=== PATIENT | male | born 1930 | race Caucasian/White ===

== ENCOUNTER 2016-05-05 11:47 | Outpatient (CLI) | payer MEDICARE, OTHER | END 2016-05-05 11:48 | disposition home or self-care (01) | DX: Z85.46 Personal history of malignant neoplasm of prostate (principal) ==

== ENCOUNTER 2016-06-10 10:26 | Outpatient (CLI) | payer MEDICARE, OTHER | END 2016-06-10 10:27 | disposition home or self-care (01) | DX: M25.551 Pain in right hip (principal); M47.817 Spondylosis without myelopathy or radiculopathy, lumbosacral region ==

== ENCOUNTER 2016-07-01 10:13 | Outpatient (CLI) | payer MEDICARE, OTHER | END 2016-07-01 10:14 | disposition home or self-care (01) | DX: M51.36 Other intervertebral disc degeneration, lumbar region (principal); M47.896 Other spondylosis, lumbar region; M51.26 Other intervertebral disc displacement, lumbar region; M43.16 Spondylolisthesis, lumbar region; M51.37 Other intervertebral disc degeneration, lumbosacral region; M47.897 Other spondylosis, lumbosacral region ==

== ENCOUNTER 2016-08-19 19:34 | Outpatient (CLI) | payer MEDICARE, OTHER | END 2016-08-19 19:35 | disposition short-term general hospital (02) | LOC: EMS 19:34 | PROVIDERS: ATTEND Surgery | DX: R07.89 Other chest pain (principal) | CPT/HCPCS: A0425; A0427 ==

== ENCOUNTER 2017-04-04 09:43 | Emergency (ER) | payer MEDICARE, OTHER ==
[2017-04-04 09:50] VITALS: BP 143/73
[2017-04-04] MEDS ORDERED: DEXAMETHASONE 10 MG/ML VIAL PO STA (10:59)
--- NOTE | 2017-04-04 11:02 | ED Physician Documentation ---
PD HPI URI - Stated complaint Stated Complaint: COUGH/THROAT PX - Chief complaint Chief Complaint: Heent - History obtained from History obtained from: Patient, Family - History of Present Illness Timing - onset: Yesterday Timing duration: Days (2) Timing details: Gradual onset, Still present Associated symptoms: Nasal congestion, Rhinorrhea, Sore throat, Dry cough Contributing factors: Sick contact (daughter sick with UTI) Improves by: Rest Similar symptoms before: Has not had sx before Recently seen: Not recently seen - Additional information Additional information: 86-year-old male with a history of hypertension and congestive heart failure has developed a cough and congestion with a sore throat over the past 2 days. He has enough pain that is hard to swallow food. He has some drainage down the back of his throat and he had some nausea yesterday. Review of Systems Constitutional: denies: Fever Eyes: denies: Decreased vision Ears: denies: Ear pain Nose: reports: Rhinorrhea / runny nose, Congestion Throat: reports: Sore throat Cardiac: denies: Chest pain / pressure, Palpitations Respiratory: reports: Cough. denies: Dyspnea GI: reports: Nausea. denies: Vomiting : denies: Dysuria, Frequency PD PAST MEDICAL HISTORY - Past Medical History Past Medical History: Yes Cardiovascular: Congestive heart failure, Hypertension Respiratory: Sleep apnea Endocrine/Autoimmune: None GI: GERD : Other HEENT: Chronic vision loss Psych: None Musculoskeletal: Osteoarthritis, Fibromyalgia, Other Derm: None - Past Surgical History Past Surgical History: Yes General: Colonoscopy Ortho: Shoulder arthroplasty Cardiovascular: Other HEENT: Cataracts - Present Medications Home Medications: Ambulatory Orders Medication Instructions Recorded Confirmed Aspirin [Aspir 81] 81 mg PO DAILY 08/17/12 04/04/17 Omeprazole 20 mg PO BID 08/17/12 04/04/17 Tamsulosin [Flomax] 0.4 mg PO DAILY 08/17/12 04/04/17 Losartan [Cozaar] 25 mg PO DAILY 01/10/14 04/04/17 oxyCODONE ER [OxyCONTIN] 10 mg PO BID 01/10/14 04/04/17 oxyCODONE [Roxicodone] 5 mg PO Q4HR PRN 01/10/14 04/04/17 Guaifenesin/Dextromethorphan 1 tab ORAL DAILY 08/22/14 04/04/17 [Mucinex Dm ER 1,200-60 mg Tab] Amox/Clav 875/125 [Augmentin] 1 each PO Q12H #20 tablet 04/04/17 - Allergies Allergies/Adverse Reactions: Allergies Allergy/AdvReac Type Severity Reaction Status Date / Time No Known Drug Allergies Allergy Unverified 04/04/17 09:50 - Social History Does the pt smoke?: No Smoking Status: Never smoker Does the pt drink ETOH?: Yes Does the pt have substance abuse?: No - Immunizations Immunizations are current?: Yes - POLST Patient has POLST: No PD ED PE NORMAL - Vitals Vital signs reviewed: Yes (Hypertensive mild) - General General: Alert and oriented X 3, No acute distress, Well developed/nourished - HEENT HEENT: Atraumatic, PERRL, EOMI, Other (The left TM is inflamed with indistinct landmarks the right TM is not visible secondary to cerumen the pharynx is with dry mucous membranes and mild inflammation) - Neck Neck: Supple, no meningeal sign, No bony TTP - Cardiac Cardiac: RRR, No murmur - Respiratory Respiratory: No respiratory distress, Other (Scattered wheezes throughout with diminished breath sounds) - Abdomen Abdomen: Soft, Non tender - Back Back: No CVA TTP, No spinal TTP - Derm Derm: Normal color, Warm and dry, No rash - Extremities Extremities: No deformity, No edema - Neuro Neuro: No motor deficit, No sensory deficit Eye Opening: Spontaneous Motor: Obeys Commands Verbal: Oriented GCS Score: 15 - Psych Psych: Normal mood, Other (Affect is flat) Results - Vitals Vitals: Vital Signs - 24 hr 04/04/17 09:47 Temperature 37.0 C Heart Rate 73 Respiratory 16 Rate Blood Pressure 143/73 H O2 Saturation 94 Oxygen O2 Source Room air - Labs Labs: Laboratory Tests 04/04/17 11:00 Group A Strep Rapid Negative PD MEDICAL DECISION MAKING - ED course Complexity details: reviewed old records, reviewed results, re-evaluated patient , considered differential, d/w patient, d/w family ED course: 86-year-old male with a cough congestion and sore throat as OM on examination. He is administered dexamethasone 10 mg a rapid strep is negative and he is placed on Augmentin. Departure - Departure Disposition: 01 Home, Self Care Clinical Impression: Otitis media Qualifiers: Otitis media type: suppurative Chronicity: acute Laterality: left Recurrence: not specified as recurrent Spontaneous tympanic membrane rupture: without spontaneous rupture Qualified Code(s): H66.002 - Acute suppurative otitis media without spontaneous rupture of ear drum, left ear Condition: Stable Instructions: ED Otitis Media Acute Adult Follow-Up: Luzma Hartley MD [Primary Care Provider] - Prescriptions: Amox/Clav 875/125 [Augmentin] 1 each PO Q12H #20 tablet
== END 2017-04-04 11:42 | disposition home or self-care (01) ==
LOC: ED 09:43
DX: H66.002 Acute suppurative otitis media without spontaneous rupture of ear drum, left ear (principal); I11.0 Hypertensive heart disease with heart failure; I50.9 Heart failure, unspecified; K21.9 Gastro-esophageal reflux disease without esophagitis; M79.7 Fibromyalgia; M19.90 Unspecified osteoarthritis, unspecified site; Z79.82 Long term (current) use of aspirin
CPT/HCPCS: 87070; 87430; 99283

== ENCOUNTER 2017-05-13 09:40 | Outpatient (CLI) | payer MEDICARE, OTHER | END 2017-05-13 09:41 | disposition home or self-care (01) | LOC: LAB 09:40 | PROVIDERS: ATTEND Urology | DX: Z85.46 Personal history of malignant neoplasm of prostate (principal) | CPT/HCPCS: 36415; 84153 ==

== ENCOUNTER 2018-06-20 07:46 | Emergency (ER) | payer MEDICARE, OTHER ==
--- NOTE | 2018-06-20 08:34 | ED Physician Documentation ---
PD HPI ALTERED MENTAL STATUS - Stated complaint Stated Complaint: CONFUSION - Chief complaint Chief Complaint: Neuro - History obtained from History obtained from: Patient - History of Present Illness Timing - onset: Today Timing - details: Abrupt onset ( and daughter noted him to seem confused and off balance some this morning. He had fallen yesterday, mechanical fall while doing some bending and lifting, and fell to left, hitting shoulder and arm but also struck head on wall. No LOC and seemed okay at the time. This morning with the above symptoms. Denied headache. No focal weaknesses.) Quality / character: Confused, Disoriented Associated symptoms: No: Fever, Headache, NVD Contributing factors: Recent injury. No: Anticoagulated, Recent med change, Recent illness Basline status: Alert and oriented X 3, Ambulatory Similar symptoms before: Has not had sx before Recently seen: Not recently seen Review of Systems Constitutional: denies: Fever Nose: denies: Rhinorrhea / runny nose, Congestion Throat: denies: Sore throat Respiratory: denies: Cough GI: denies: Nausea, Vomiting Neurologic: reports: Confused (this morning, improving), Head injury (mild yesterday). denies: Generalized weakness, Focal weakness, Numbness, Difficulty speaking, Headache, LOC PD PAST MEDICAL HISTORY - Past Medical History Cardiovascular: Congestive heart failure, Hypertension Respiratory: Sleep apnea Neuro: None Endocrine/Autoimmune: None GI: GERD : Other HEENT: Chronic vision loss Psych: None Musculoskeletal: Osteoarthritis, Fibromyalgia, Other Derm: None Other Past Medical History: AICD placement - Past Surgical History Past Surgical History: Yes General: Colonoscopy Ortho: Shoulder arthroplasty Cardiovascular: Other HEENT: Cataracts - Present Medications Home Medications: Ambulatory Orders Medication Instructions Recorded Confirmed Aspirin [Aspir 81] 81 mg PO DAILY 08/17/12 04/04/17 Omeprazole 20 mg PO BID 08/17/12 04/04/17 Tamsulosin [Flomax] 0.4 mg PO DAILY 08/17/12 04/04/17 Losartan [Cozaar] 25 mg PO DAILY 01/10/14 04/04/17 oxyCODONE ER [OxyCONTIN] 10 mg PO BID 01/10/14 04/04/17 oxyCODONE [Roxicodone] 5 mg PO Q4HR PRN 01/10/14 04/04/17 Guaifenesin/Dextromethorphan 1 tab ORAL DAILY 08/22/14 04/04/17 [Mucinex Dm ER 1,200-60 mg Tab] Amox/Clav 875/125 [Augmentin] 1 each PO Q12H #20 tablet 04/04/17 - Allergies Allergies/Adverse Reactions: Allergies Allergy/AdvReac Type Severity Reaction Status Date / Time No Known Drug Allergies Allergy Verified 06/20/18 08:03 - Social History Does the pt smoke?: No Smoking Status: Never smoker Does the pt drink ETOH?: Yes Does the pt have substance abuse?: No - Immunizations Immunizations are current?: Yes - POLST Patient has POLST: No PD ED PE NORMAL - Vitals Vital signs reviewed: Yes - General General: Alert and oriented X 3, No acute distress, Well developed/nourished - HEENT HEENT: Moist mucous membranes, Pharynx benign, Other (minimal tenderness left side head without swelling. ) - Neck Neck: Supple, no meningeal sign, No bony TTP, No adenopathy - Cardiac Cardiac: RRR, No murmur - Respiratory Respiratory: Clear bilaterally - Abdomen Abdomen: Soft, Non tender - Derm Derm: Normal color, Warm and dry - Neuro Neuro: Alert and oriented X 3, education supervisor 2-12 intact, No motor deficit, No sensory deficit, Normal speech Eye Opening: Spontaneous Motor: Obeys Commands Verbal: Oriented GCS Score: 15 Results - Vitals Vitals: Vital Signs - 24 hr 06/20/18 06/20/18 07:59 09:32 Temperature 36.6 C Heart Rate 81 57 L Respiratory 16 14 Rate Blood Pressure 141/72 H 148/79 H O2 Saturation 95 92 Oxygen O2 Source Room air - Labs Labs: Laboratory Tests 06/20/18 06/20/18 06/20/18 07:59 08:24 08:45 WBC 9.2 RBC 3.71 L Hgb 13.2 L Hct 39.6 L MCV 106.6 H MCH 35.6 H MCHC 33.4 RDW 12.7 Plt Count 150 MPV 7.1 L Neut # (Auto) 6.9 H Lymph # (Auto) 1.5 [place] # (Auto) 0.6 Eos # (Auto) 0.2 Baso # (Auto) 0.0 Absolute Nucleated RBC 0.00 Nucleated RBC % 0.0 Sodium Potassium Chloride Carbon Dioxide Anion Gap BUN Creatinine Estimated GFR (MDRD) Glucose POC Whole Bld Glucose 91 Calcium Magnesium Total Bilirubin AST ALT Alkaline Phosphatase Troponin I Total Protein Albumin Globulin Albumin/Globulin Ratio Lipase Urine Color YELLOW Urine Clarity CLEAR Urine pH 6.0 Ur Specific [place] 1.025 Urine Protein NEGATIVE Urine Glucose (UA) NEGATIVE Urine Ketones NEGATIVE Urine Occult Blood NEGATIVE Urine Nitrite NEGATIVE Urine Bilirubin NEGATIVE Urine Urobilinogen 0.2 (NORMAL) Ur Leukocyte Esterase NEGATIVE Ur Microscopic Review NOT INDICATED Urine Culture Comments NOT INDICATED 06/20/18 06/20/18 06/20/18 08:45 08:45 08:45 WBC RBC Hgb Hct MCV MCH MCHC RDW Plt Count MPV Neut # (Auto) Lymph # (Auto) [place] # (Auto) Eos # (Auto) Baso # (Auto) Absolute Nucleated RBC Nucleated RBC % Sodium 136 Potassium 4.5 Chloride 102 Carbon Dioxide 24 Anion Gap 10.0 BUN 32 H Creatinine 0.9 Estimated GFR (MDRD) 80 L Glucose 91 POC Whole Bld Glucose Calcium 8.8 Magnesium 2.1 Total Bilirubin 1.3 H AST 32 ALT 17 Alkaline Phosphatase 65 Troponin I < 0.04 Total Protein 7.6 Albumin 3.7 Globulin 3.9 Albumin/Globulin Ratio 0.9 L Lipase 20 L Urine Color Urine Clarity Urine pH Ur Specific [place] Urine Protein Urine Glucose (UA) Urine Ketones Urine Occult Blood Urine Nitrite Urine Bilirubin Urine Urobilinogen Ur Leukocyte Esterase Ur Microscopic Review Urine Culture Comments - Rads (name of study) head CT Radiology: Prelim report reviewed (age related changes; no acute injury) PD MEDICAL DECISION MAKING - ED course Complexity details: reviewed results, considered differential, d/w patient Departure - Departure Disposition: 01 Home, Self Care Clinical Impression: Accidental fall Qualifiers: Encounter type: initial encounter Qualified Code(s): W19.XXXA - Unspecified fall, initial encounter Altered mental status Qualifiers: Altered mental status type: disorientation Qualified Code(s): R41.0 - Disorientation, unspecified Mild concussion Qualifiers: Encounter type: initial encounter Loss of consciousness presence/duration: without LOC Qualified Code(s): S06.0X0A - Concussion without loss of consciousness, initial encounter Condition: Stable Record reviewed to determine appropriate education?: Yes Instructions: ED Concussion, ED Confusion Follow-Up: Luzma Hartley MD [Primary Care Provider] - Comments: Stay well-hydrated. Minimal activity today. Continue usual medicines. Recheck if persistent symptoms. Discharge Date/Time: 06/20/18 10:46
[2018-06-20 08:52] LABS: BASOPHILS % (AUTO) 0.3 %; EOSINOPHILS # (AUTO) 0.2 10^3/uL (0.0-0.7); EOSINOPHILS % (AUTO) 2.7 %; HGB - HEMOGLOBIN 13.2 g/dL (14.0-18.0); LYMPHOCYTES # (AUTO) 1.5 10^3/uL (1.5-3.5); MEAN CORPUSCULAR HEMOGLOBIN 35.6 pg (27.0-31.0); MEAN CORPUSCULAR HGB CONC 33.4 g/dL (32.0-36.0); MEAN CORPUSCULAR VOLUME 106.6 fL (80.0-94.0); MEAN PLATELET VOLUME 7.1 fL (7.4-11.4); MONOCYTES # (AUTO) 0.6 10^3/uL (0.0-1.0); MONOCYTES % (AUTO) 6.1 %; NEUTROPHILS # (AUTO) 6.9 10^3/uL (1.5-6.6); NEUTROPHILS % (AUTO) 74.9 %; PLT - PLATELET COUNT 150 10^3/uL (130-450); RED BLOOD COUNT 3.71 10^6/uL (4.70-6.10); RED CELL DISTRIBUTION WIDTH 12.7 % (12.0-15.0); WHITE BLOOD COUNT 9.2 x10^3/uL (4.8-10.8)
[2018-06-20 09:17] LABS: BILIRUBIN,URINE NEGATIVE (NEGATIVE); GLUCOSE, URINE (UA) NEGATIVE (NEGATIVE); KETONES,URINE (UA) NEGATIVE (NEGATIVE); LEUKOCYTE ESTERASE, URINE NEGATIVE (NEGATIVE); NITRITE,URINE NEGATIVE (NEGATIVE); OCCULT BLOOD,URINE NEGATIVE (NEGATIVE); PROTEIN,URINE NEGATIVE (NEGATIVE); UROBILINOGEN,URINE 0.2 (NORMAL) E.U./dL (NORMAL)
[2018-06-20 09:18] LABS: CLARITY,URINE CLEAR (CLEAR)
[2018-06-20 09:22] LABS: ALBUMIN 3.7 g/dL (3.2-5.5); ALBUMIN/GLOBULIN RATIO 0.9 (1.0-2.2); BILIRUBIN,TOTAL 1.3 mg/dL (0.2-1.0); CALCIUM 8.8 mg/dL (8.5-10.3); CREATININE 0.9 mg/dL (0.6-1.2); TOTAL PROTEIN 7.6 g/dL (6.7-8.2)
[2018-06-20 09:32] VITALS: BP 148/79
--- NOTE | 2018-06-20 09:51 | CT Report ---
Reason: head injury yesterday, confused today Procedure Date: 06/20/2018 Accession Number: [id number] / [id number] Procedure: CT - HEAD WO CPT Code: FULL RESULT: EXAM: CT HEAD EXAM DATE: 06/20/2018 09:14 AM. CLINICAL HISTORY: Head injury yesterday, confused today. COMPARISON: CT head 07/07/2013. TECHNIQUE: Multiaxial CT images were obtained from the foramen magnum to the vertex. Reformats: Sagittal and coronal. IV contrast: None. In accordance with CT protocol optimization, one or more of the following dose reduction techniques were utilized for this exam: automated exposure control, adjustment of mA and/or KV based on patient size, or use of iterative reconstructive technique. FINDINGS: Parenchyma: No intraparenchymal hemorrhage. No evidence of mass, midline shift, or CT findings of infarction. Campbell-white differentiation is distinct. Extraaxial Spaces: Normal for age. No subdural or epidural collections identified. Ventricles: Normal in size and position. Sinuses and Orbits: Imaged paranasal sinuses, orbits, and mastoids show no significant abnormality. Bones: No evidence of fracture or calvarial defect. Other: None. IMPRESSION: Normal head CT. No evidence of fracture or intracranial injury. RADIA
== END 2018-06-20 10:46 | disposition home or self-care (01) ==
LOC: ED 07:46
DX: R41.0 Disorientation, unspecified (principal); S06.0X0A Concussion without loss of consciousness, initial encounter; W18.30XA Fall on same level, unspecified, initial encounter; W22.09XA Striking against other stationary object, initial encounter; I11.0 Hypertensive heart disease with heart failure; I50.9 Heart failure, unspecified; Z95.810 Presence of automatic (implantable) cardiac defibrillator; Z79.82 Long term (current) use of aspirin
CPT/HCPCS: 36415; 70450; 80053; 81001; 81003; 83690; 83735; 84484; 85025; 87086; 99283; 99284

== ENCOUNTER 2018-07-14 10:19 | Outpatient (CLI) | payer MEDICARE, OTHER | END 2018-07-14 10:20 | disposition home or self-care (01) | LOC: LAB 10:19 | PROVIDERS: ATTEND Urology | DX: C61 Malignant neoplasm of prostate (principal) | CPT/HCPCS: 36415; 84153 ==

== ENCOUNTER 2019-09-08 11:34 | Outpatient (CLI) | payer MEDICARE, OTHER | END 2019-09-08 11:35 | disposition home or self-care (01) | LOC: LAB 11:34 | PROVIDERS: ATTEND Urology | DX: Z85.46 Personal history of malignant neoplasm of prostate (principal) | CPT/HCPCS: 36415; 84153 ==

== ENCOUNTER 2020-06-18 08:27 | Outpatient (CLI) | payer MEDICARE, OTHER ==
[2020-06-18 08:48] LABS: BASOPHILS % (AUTO) 0.3 %; EOSINOPHILS # (AUTO) 0.7 10^3/uL (0.0-0.7); EOSINOPHILS % (AUTO) 12.1 %; HCT - HEMATOCRIT 41.5 % (42.0-52.0); LYMPHOCYTES # (AUTO) 1.8 10^3/uL (1.5-3.5); LYMPHOCYTES % (AUTO) 29.7 %; MEAN CORPUSCULAR HEMOGLOBIN 36.5 pg (27.0-31.0); MEAN CORPUSCULAR HGB CONC 33.7 g/dL (32.0-36.0); MEAN CORPUSCULAR VOLUME 108.1 fL (80.0-94.0); MEAN PLATELET VOLUME 9.9 fL (7.4-11.4); MONOCYTES # (AUTO) 0.6 10^3/uL (0.0-1.0); MONOCYTES % (AUTO) 9.2 %; NEUTROPHILS # (AUTO) 2.9 10^3/uL (1.5-6.6); NEUTROPHILS % (AUTO) 48.5 %; PLT - PLATELET COUNT 142 10^3/uL (130-450); RED BLOOD COUNT 3.84 10^6/uL (4.70-6.10); RED CELL DISTRIBUTION WIDTH 12.4 % (12.0-15.0)
[2020-06-18 09:06] LABS: ALBUMIN 3.9 g/dL (3.2-5.5); ALKALINE PHOSPHATASE 48 IU/L (42-121); ALT ALANINE AMINOTRANSFERASE 20 IU/L (10-60); AST ASPARTATE AMINOTRANSFERASE 24 IU/L (10-42); BILIRUBIN,TOTAL 1.2 mg/dL (0.2-1.0); BUN - BLOOD UREA NITROGEN 42 mg/dL (6-20); CALCIUM 9.3 mg/dL (8.5-10.3); CARBON DIOXIDE - CO2 26 mmol/L (21-32); CHLORIDE 103 mmol/L (101-111); CHOL/HDL RATIO 3.4 (<5.0); CHOLESTEROL 125 mg/dL; CK- CREATINE KINASE 160 IU/L (22-269); CREATININE 1.3 mg/dL (0.6-1.2); GFR - MDRD 52 (>89); GLUCOSE 105 mg/dL (70-100); HDL CHOLESTEROL 37 mg/dL; LDL CHOLESTEROL,CALCULATED 75 mg/dL; POTASSIUM 4.3 mmol/L (3.5-5.0); SODIUM 138 mmol/L (135-145); TOTAL PROTEIN 7.8 g/dL (6.7-8.2); TRIGLYCERIDES 66 mg/dL; VLDL CHOLESTEROL 13 mg/dL
[2020-06-18 09:15] LABS: BILIRUBIN,URINE NEGATIVE (NEGATIVE); GLUCOSE, URINE (UA) NEGATIVE (NEGATIVE); KETONES,URINE (UA) NEGATIVE (NEGATIVE); LEUKOCYTE ESTERASE, URINE NEGATIVE (NEGATIVE); NITRITE,URINE NEGATIVE (NEGATIVE); OCCULT BLOOD,URINE NEGATIVE (NEGATIVE); PH,URINE 5.5 PH (5.0-7.5); PROTEIN,URINE NEGATIVE (NEGATIVE); UROBILINOGEN,URINE 1 (NORMAL) E.U./dL (NORMAL)
[2020-06-18 09:16] LABS: CLARITY,URINE CLEAR (CLEAR)
[2020-06-18 09:19] LABS: THYROID STIMULATING HORMONE 1.16 uIU/mL (0.34-5.60)
[2020-06-18 09:21] LABS: FREE T4 (FREE THYROXINE) 1.45 ng/dL (0.58-1.64)
[2020-06-18 12:51] LABS: ESTIMATED AVERAGE GLUCOSE 114 mg/dL (70-100); HEMOGLOBIN A1c% 5.6 % (4.27-6.07)
== END 2020-06-18 08:28 | disposition home or self-care (01) ==
LOC: LAB 08:27
PROVIDERS: ATTEND Internal Medicine
DX: E78.5 Hyperlipidemia, unspecified (principal); R94.5 Abnormal results of liver function studies; N18.9 Chronic kidney disease, unspecified; Z86.2 Personal history of diseases of the blood and blood-forming organs and certain disorders involving the immune mechanism; R39.14 Feeling of incomplete bladder emptying; Z79.899 Other long term (current) drug therapy; E05.90 Thyrotoxicosis, unspecified without thyrotoxic crisis or storm; R73.9 Hyperglycemia, unspecified; C61 Malignant neoplasm of prostate
CPT/HCPCS: 36415; 80053; 80061; 81001; 81003; 82550; 83036; 83721; 84153; 84439; 84443; 85025; 87086

== ENCOUNTER 2020-09-26 14:29 | Outpatient (CLI) | payer MEDICARE, OTHER | END 2020-09-26 14:30 | disposition home or self-care (01) | LOC: LAB 14:29 | PROVIDERS: ATTEND Urology | DX: C61 Malignant neoplasm of prostate (principal) | CPT/HCPCS: 36415; 84153 ==

== ENCOUNTER 2021-07-10 08:00 | Outpatient (CLI) | payer MEDICARE, OTHER ==
[2021-07-10 16:04] LABS: BASOPHILS # (AUTO) 0.1 10^3/uL (0.0-0.1); BASOPHILS % (AUTO) 0.8 %; EOSINOPHILS # (AUTO) 0.3 10^3/uL (0.0-0.7); EOSINOPHILS % (AUTO) 5.7 %; HCT - HEMATOCRIT 44.3 % (42.0-52.0); HGB - HEMOGLOBIN 14.8 g/dL (14.0-18.0); LYMPHOCYTES # (AUTO) 1.8 10^3/uL (1.5-3.5); LYMPHOCYTES % (AUTO) 30.6 %; MEAN CORPUSCULAR HEMOGLOBIN 35.7 pg (27.0-31.0); MEAN CORPUSCULAR HGB CONC 33.4 g/dL (32.0-36.0); MEAN CORPUSCULAR VOLUME 106.7 fL (80.0-94.0); MEAN PLATELET VOLUME 10.5 fL (7.4-11.4); MONOCYTES # (AUTO) 0.4 10^3/uL (0.0-1.0); MONOCYTES % (AUTO) 6.3 %; NEUTROPHILS # (AUTO) 3.4 10^3/uL (1.5-6.6); NEUTROPHILS % (AUTO) 56.3 %; PLT - PLATELET COUNT 138 10^3/uL (130-450); RED BLOOD COUNT 4.15 10^6/uL (4.70-6.10); RED CELL DISTRIBUTION WIDTH 12.1 % (12.0-15.0)
[2021-07-10 16:44] LABS: PSA TOTAL 0.01 ng/mL (0.000-2.000)
[2021-07-10 16:48] LABS: ALBUMIN 3.9 g/dL (3.2-5.5); ALKALINE PHOSPHATASE 53 IU/L (42-121); ALT ALANINE AMINOTRANSFERASE 17 IU/L (10-60); AST ASPARTATE AMINOTRANSFERASE 25 IU/L (10-42); BILIRUBIN,TOTAL 1.1 mg/dL (0.2-1.0); BUN - BLOOD UREA NITROGEN 26 mg/dL (6-20); CALCIUM 9.2 mg/dL (8.5-10.3); CARBON DIOXIDE - CO2 28 mmol/L (21-32); CHLORIDE 101 mmol/L (101-111); CHOL/HDL RATIO 3.3 (<5.0); CHOLESTEROL 145 mg/dL; CK- CREATINE KINASE 52 IU/L (22-269); GFR - MDRD 71 (>89); GLUCOSE 94 mg/dL (70-100); HDL CHOLESTEROL 44 mg/dL; LDL CHOLESTEROL,CALCULATED 82 mg/dL; LDL/HDL RATIO 1.9 (<3.6); POTASSIUM 3.9 mmol/L (3.5-5.0); SODIUM 139 mmol/L (135-145); TOTAL PROTEIN 7.8 g/dL (6.7-8.2); TRIGLYCERIDES 94 mg/dL; VLDL CHOLESTEROL 19 mg/dL
[2021-07-10 16:50] LABS: THYROID STIMULATING HORMONE 0.49 uIU/mL (0.34-5.60)
[2021-07-10 16:52] LABS: FREE T4 (FREE THYROXINE) 1.32 ng/dL (0.58-1.64)
[2021-07-10 20:28] LABS: ESTIMATED AVERAGE GLUCOSE 114 mg/dL (70-100); HEMOGLOBIN A1c% 5.6 % (4.27-6.07)
== END 2021-07-10 08:01 | disposition home or self-care (01) ==
LOC: LAB.R 08:00
PROVIDERS: ATTEND Internal Medicine
DX: Z00.00 Encounter for general adult medical examination without abnormal findings (principal); I13.0 Hypertensive heart and chronic kidney disease with heart failure and stage 1 through stage 4 chronic kidney disease, or unspecified chronic kidney disease; N18.9 Chronic kidney disease, unspecified; I50.9 Heart failure, unspecified; I25.10 Atherosclerotic heart disease of native coronary artery without angina pectoris; R42 Dizziness and giddiness; K21.9 Gastro-esophageal reflux disease without esophagitis; R73.9 Hyperglycemia, unspecified; E78.5 Hyperlipidemia, unspecified; E05.90 Thyrotoxicosis, unspecified without thyrotoxic crisis or storm; H61.21 Impacted cerumen, right ear; C61 Malignant neoplasm of prostate; R56.9 Unspecified convulsions; G47.30 Sleep apnea, unspecified
CPT/HCPCS: 80053; 80061; 82550; 83036; 83721; 84153; 84439; 84443; 85025

== ENCOUNTER 2021-07-23 13:53 | Outpatient (CLI) | payer MEDICARE, OTHER | END 2021-07-23 23:59 | disposition short-term general hospital (02) | LOC: EMS 13:53 | DX: I95.1 Orthostatic hypotension (principal); R53.1 Weakness; R42 Dizziness and giddiness | CPT/HCPCS: A0425; A0427 ==

== ENCOUNTER 2022-04-10 11:27 | Outpatient (CLI) | payer MEDICARE, OTHER ==
[2022-04-10 11:43] LABS: BASOPHILS % (AUTO) 0.5 %; EOSINOPHILS # (AUTO) 0.2 10^3/uL (0.0-0.7); EOSINOPHILS % (AUTO) 2.9 %; HCT - HEMATOCRIT 38.5 % (42.0-52.0); HGB - HEMOGLOBIN 12.5 g/dL (14.0-18.0); LYMPHOCYTES # (AUTO) 1.6 10^3/uL (1.5-3.5); LYMPHOCYTES % (AUTO) 19.2 %; MEAN CORPUSCULAR HEMOGLOBIN 35.1 pg (27.0-31.0); MEAN CORPUSCULAR HGB CONC 32.5 g/dL (32.0-36.0); MEAN CORPUSCULAR VOLUME 108.1 fL (80.0-94.0); MEAN PLATELET VOLUME 9.3 fL (7.4-11.4); MONOCYTES # (AUTO) 0.5 10^3/uL (0.0-1.0); MONOCYTES % (AUTO) 5.6 %; NEUTROPHILS # (AUTO) 5.8 10^3/uL (1.5-6.6); NEUTROPHILS % (AUTO) 71.2 %; PLT - PLATELET COUNT 137 10^3/uL (130-450); RED BLOOD COUNT 3.56 10^6/uL (4.70-6.10); RED CELL DISTRIBUTION WIDTH 12.6 % (12.0-15.0); WHITE BLOOD COUNT 8.2 x10^3/uL (4.8-10.8)
[2022-04-10 12:02] LABS: ALBUMIN 3.5 g/dL (3.2-5.5); ALBUMIN/GLOBULIN RATIO 0.9 (1.0-2.2); BILIRUBIN,TOTAL 1.6 mg/dL (0.2-1.0); CALCIUM 9.1 mg/dL (8.5-10.3); CREATININE 1.1 mg/dL (0.6-1.2); POTASSIUM 3.8 mmol/L (3.5-5.0); TOTAL PROTEIN 7.5 g/dL (6.7-8.2)
--- NOTE | 2022-04-10 12:15 | CT Report ---
PROCEDURE: HEAD WO INDICATIONS: BALANCE IMPAIRNET TECHNIQUE: Noncontrast 4.5 mm thick angled axial sections acquired from the foramen magnum to the vertex. For r adiation dose reduction, the following was used: automated exposure control, adjustment of mA and/or kV according to patient size. COMPARISON: 06/20/2018. FINDINGS: Image quality: Excellent. CSF spaces: Basal cisterns are patent. No extra-axial fluid collections. Ventricles are normal in size and shape. Brain: No midline shift. No intracranial masses or hemorrhage. Campbell-white matter interface is norm al. Age-related volume loss and small vessel ischemic change. Diffuse calcifications of the vertebra l arteries and cavernous carotids. Skull and face: Calvarium and visualized facial bones are intact, without suspicious lesions. Sinuses: Visualized sinuses and mastoids are clear. IMPRESSION: 1. ASCVD. 2. No evidence acute intracranial process. Reviewed by: Dmitriy Arellano MD on 04/10/2022 12:14 PM PST Approved by: Dmitriy Arellano MD on 04/10/2022 12:14 PM PST Station ID: [id number]
== END 2022-04-10 11:28 | disposition home or self-care (01) ==
LOC: DI 11:27
PROVIDERS: ATTEND Internal Medicine
DX: I67.2 Cerebral atherosclerosis (principal); R26.89 Other abnormalities of gait and mobility; R09.02 Hypoxemia; R40.0 Somnolence; R53.1 Weakness; R06.00 Dyspnea, unspecified
CPT/HCPCS: 36415; 80053; 85025

== ENCOUNTER 2022-04-29 10:42 | Outpatient (CLI) | payer MEDICARE, OTHER | END 2022-04-29 10:43 | disposition short-term general hospital (02) | LOC: EMS 10:42 | DX: R07.9 Chest pain, unspecified (principal); R53.1 Weakness; R53.83 Other fatigue; R41.0 Disorientation, unspecified; I49.9 Cardiac arrhythmia, unspecified; Z95.810 Presence of automatic (implantable) cardiac defibrillator | CPT/HCPCS: A0425; A0427 ==

== ENCOUNTER 2022-05-28 05:47 | Outpatient (CLI) | payer MEDICARE, OTHER | END 2022-05-28 05:48 | disposition critical access hospital (66) | LOC: EMS 05:47 | DX: R06.02 Shortness of breath (principal); R07.9 Chest pain, unspecified; R05.3 Chronic cough | CPT/HCPCS: A0425; A0427 ==

== ENCOUNTER 2022-05-28 06:07 | Emergency (ER) | payer MEDICARE, OTHER ==
[~2022-05-28 06:07] MED LIST: ATROPINE ABBOJECT 1 MG/10 ML SYRINGE IVP ONE
[2022-05-28] MEDS ORDERED: AMIODARONE 150 MG/100 ML 100 ML IV ONE ×2 (06:22→06:38)
[2022-05-28] MEDS ORDERED: SODIUM CHLORIDE 0.9% 1,000 ML IV STA (06:37)
[2022-05-28] MEDS ORDERED: AMIODARONE 360 MG/200 ML 200 ML IV ONE ×2 (06:38→06:57)
[2022-05-28] MEDS ORDERED: MIDAZOLAM 2 MG/2 ML VIAL IVP STA ×2 (06:41→06:52)
[2022-05-28] MEDS ORDERED: MIDAZOLAM 2 MG/2 ML VIAL ONE (06:45)
[2022-05-28 07:44] LABS: BASOPHILS # (AUTO) 0.1 10^3/uL (0.0-0.1); BASOPHILS % (AUTO) 0.7 %; EOSINOPHILS # (AUTO) 0.4 10^3/uL (0.0-0.7); EOSINOPHILS % (AUTO) 4.7 %; HCT - HEMATOCRIT 39.3 % (42.0-52.0); HGB - HEMOGLOBIN 12.5 g/dL (14.0-18.0); LYMPHOCYTES # (AUTO) 1.5 10^3/uL (1.5-3.5); MEAN CORPUSCULAR HEMOGLOBIN 36.1 pg (27.0-31.0); MEAN CORPUSCULAR HGB CONC 31.8 g/dL (32.0-36.0); MEAN CORPUSCULAR VOLUME 113.6 fL (80.0-94.0); MEAN PLATELET VOLUME 9.3 fL (7.4-11.4); MONOCYTES # (AUTO) 0.6 10^3/uL (0.0-1.0); MONOCYTES % (AUTO) 6.3 %; NEUTROPHILS # (AUTO) 6.3 10^3/uL (1.5-6.6); NEUTROPHILS % (AUTO) 70.6 %; PLT - PLATELET COUNT 161 10^3/uL (130-450); RED BLOOD COUNT 3.46 10^6/uL (4.70-6.10); RED CELL DISTRIBUTION WIDTH 13.2 % (12.0-15.0); WHITE BLOOD COUNT 8.9 x10^3/uL (4.8-10.8)
--- NOTE | 2022-05-28 07:44 | ED Physician Documentation ---
PD HPI CHEST PAIN - Stated complaint Stated Complaint: SOA/CHEST PX - Chief complaint Chief Complaint: Cardiac - History obtained from History obtained from: Patient, EMS - Additional information Additional information: 89-year-old man presented to the ED in V. tach, complaining of chest pain for the past week, worsening tonight. Unable to give further history. Review of Systems Unable to obtain: Other (difficult historian) PD PAST MEDICAL HISTORY - Past Medical History Cardiovascular: Congestive heart failure, Hypertension Respiratory: Sleep apnea Neuro: None Endocrine/Autoimmune: None GI: GERD : Other HEENT: Chronic vision loss Psych: None Musculoskeletal: Osteoarthritis, Fibromyalgia, Other Derm: None - Past Surgical History Past Surgical History: Yes General: Colonoscopy Ortho: Shoulder arthroplasty Cardiovascular: Other HEENT: Cataracts - Present Medications Home Medications: Ambulatory Orders Medication Instructions Recorded Confirmed Aspirin [Aspir 81] 81 mg PO DAILY 08/17/12 04/04/17 Omeprazole 20 mg PO BID 08/17/12 04/04/17 Tamsulosin [Flomax] 0.4 mg PO DAILY 08/17/12 04/04/17 Losartan [Cozaar] 25 mg PO DAILY 01/10/14 04/04/17 oxyCODONE ER [OxyCONTIN] 10 mg PO BID 01/10/14 04/04/17 oxyCODONE [Roxicodone] 5 mg PO Q4HR PRN 01/10/14 04/04/17 Guaifenesin/Dextromethorphan 1 tab ORAL DAILY 08/22/14 04/04/17 [Mucinex Dm ER 1,200-60 mg Tab] Amox/Clav 875/125 [Augmentin] 1 each PO Q12H #20 tablet 04/04/17 - Allergies Allergies/Adverse Reactions: Allergies Allergy/AdvReac Type Severity Reaction Status Date / Time No Known Drug Allergies Allergy Verified 05/28/22 06:48 - Social History Does the pt smoke?: No Smoking Status: Never smoker Does the pt drink ETOH?: Yes Does the pt have substance abuse?: No - Immunizations Immunizations are current?: Yes - POLST Patient has POLST: No PD ED PE NORMAL - Vitals Vital signs reviewed: Yes - General General: Other (elderly and frail appearing) - HEENT HEENT: Atraumatic, PERRL, EOMI, Other (dry MM) - Neck Neck: Supple, no meningeal sign - Cardiac Cardiac: Other (tachycardic rate, regular rhythm. AICD/pacemaker in place in L upper chest wall) - Respiratory Respiratory: Other (coarse BL breath sounds) - Abdomen Abdomen: Non tender, Non distended Results - Vitals Vitals: Vital Signs - 24 hr 05/28/22 05/28/22 05/28/22 06:08 06:20 06:30 Temperature 36.6 C Heart Rate 142 H 155 H 150 H Respiratory 20 19 14 Rate Blood Pressure 116/89 H 102/85 H 116/69 O2 Saturation 100 96 84 L If not protocol 2 : Oxygen Flow, liters/minute 05/28/22 05/28/22 05/28/22 06:50 06:55 07:10 Temperature Heart Rate 140 H 59 L 57 L Respiratory 18 18 20 Rate Blood Pressure 105/83 H 112/88 H 80/56 L O2 Saturation 100 100 100 If not protocol : Oxygen Flow, liters/minute 05/28/22 07:13 Temperature Heart Rate 68 Respiratory 17 Rate Blood Pressure O2 Saturation If not protocol : Oxygen Flow, liters/minute Oxygen O2 Source Room air - EKG (time done) 0614 EKG releavant findings:: EKG personally interpreted by author of this note. Relevant findings are: Rate: Rate (enter#) (155) Rhythm: V tach 0654 EKG releavant findings:: EKG personally interpreted by author of this note. Relevant findings are: Rate: Rate (enter#) (62) Rhythm: Other (junctional rhythm with ventricular bigeminy) Procedures - Cardioversion - Major Attempt 1 Indication: Tachyarrhythmia, Clinically unstable, Hypotension Risks, benefits, alternatives explained to: Pt Prep: IV, O2, classroom monitor, Pulse ox, Airway equip CS via: AP approach Sync: 200j Post cardioversion rhythm: Other (junctional rhythm) Performed by: ED MD Medical Decision Making - ED course ED course: d/w patient who would like to be full code. Initially gave bolus 150mg amiodarone over 10 minutes for stable vtach, but then patient became mildly hypotensive. electrical cardioversion was then completed with 2mg IV versed. call sent to his soil science professor at [facility], Dr. Sepulveda. patient endorsed to Dr. Rubin at 7am shift change.
[2022-05-28 07:46] LABS: SLIDE REVIEW? Indicated
[2022-05-28 07:58] LABS: ALBUMIN 2.8 g/dL (3.2-5.5); ALBUMIN/GLOBULIN RATIO 0.8 (1.0-2.2); BILIRUBIN,TOTAL 0.5 mg/dL (0.2-1.0); CREATININE 1.4 mg/dL (0.6-1.2); POTASSIUM 4.4 mmol/L (3.5-5.0); TOTAL PROTEIN 6.2 g/dL (6.7-8.2)
[2022-05-28 08:09] LABS: PLATELET ESTIMATE, MANUAL NORMAL (130-450,000) (NORMAL); PLATELET MORPHOLOGY NORMAL APPEARANCE (NORMAL); RBC MORPHOLOGY (MULTIPLE) 2+ MACROCYTOSIS (NORMAL)
--- NOTE | 2022-05-28 08:48 | XRAY Report ---
PROCEDURE: Chest 1 View X-Ray INDICATIONS: Chest Pain TECHNIQUE: One view of the chest was acquired. COMPARISON: None. FINDINGS: Surgical changes and devices: None. Lungs and pleura: Small left effusion. Mediastinum: Cardiomegaly. Bones and chest wall: No suspicious bony lesions. Overlying soft tissues appear unremarkable. IMPRESSION: Small left effusion. Reviewed by: Xavier Trammell on 05/28/2022 8:47 AM PDT Approved by: Xavier Trammell on 05/28/2022 8:47 AM PDT Station ID: [id number]
--- NOTE | 2022-05-28 15:58 | ED Physician Documentation ---
ED Addendum - Addendum Addendum: This patient was signed out to me by Dr. Mooney at change of shift, having presented with lightheadedness which started yesterday afternoon/evening and lasted through the night. The patient could not sleep all night because he did not feel well and finally, decided to come to the ED. The patient states he did not feel any chest pain, shortness of breath, or palpitations. When the medics picked the patient up, they found him to be in stable V. tach with a heart rate in the 150s. He was not given any antidysrhythmic's in route but was brought to the emergency department. On arrival, he was treated with fluids and IV amiodarone bolus which did not do anything for his heart rate. His blood pressure was noted to have started to drop and so he was cardioverted with a single shock. The patient was stable afterward, but was noted to have a bradycardic heart rate in the 40s with some irregularity and thought to be a junctional rhythm. The patient apparently has a pacemaker that was placed 4 to 5 years ago and actually had a couple shocks delivered 2 weeks ago. He states that he just saw his automatic fabric cutter last week and that it is Dr. Oshea in [place]. He does note that he told his Director Of Marketing Operations about the shocks and the automatic fabric cutter felt that the pacemaker was doing what it was supposed to. The patient had already been started on oral amiodarone, initially at a higher dose and now, add a once a day, 200 mg dose. The patient is also on metoprolol 100 mg twice daily. Patient states that he has been taking his meds. On my evaluation the patient after he had been cardioverted on the previous shift, the patient was alert and sitting up in bed in no distress. He reported feeling tired but otherwise, had no complaints. I did continue to treat the patient with IV fluids because initially after my assumption of care, he was mildly hypotensive. His blood pressure did normalize. I spoke with Dr. Oshea, the patient's automatic fabric cutter, who noted that the defibrillator was set at a threshold rate of 170, above which the patient would receive a shock. He felt that it was likely that since patient started the amiodarone, it has dampened his V. tach episodes so that the heart rate does not reach that height, and so a shock is not triggered. He requested that we have the [employer] rep come over and interrogate the defibrillator and adjust the threshold rate down to 140, in keeping with the height of the patient's heart rate during his V. tach episode today. He was not concerned about the troponin and felt that this was to be expected after what was most likely an hours long episode of stable V. tach. He felt that if the patient otherwise did well while waiting for the rep, that he could be discharged home. I spoke with the [employer] rep Yesika and she did come over around 1500, which was the soonest that she could make it, and did do the interrogation. She also made the adjustments requested by Dr. Oshea. The patient had been in the emergency department all day at that point and had remained very stable and without further complaints or further tachydysrhythmias. I felt he was stable for discharge home. We have discussed the need to continue his medications, the need to call Dr. Oshea's office to set up a follow-up appointment, and the usual indications for return. Final impression: 1. Ventricular tachycardia 2. Near syncope Disposition: Home in stable and improved condition. 05/28/22 15:50
[2022-05-28 16:28] VITALS: BP 109/6
== END 2022-05-28 16:27 | disposition home or self-care (01) ==
LOC: EDUNIT# → ED 06:07
DX: I47.20 Ventricular tachycardia, unspecified (principal); R55 Syncope and collapse; I11.0 Hypertensive heart disease with heart failure; I50.9 Heart failure, unspecified; Z79.899 Other long term (current) drug therapy; Z79.82 Long term (current) use of aspirin
CPT/HCPCS: 36415; 71045; 80053; 83690; 84484; 85025; 92960; 93005; 96365; 96366; 96376; 99285; J0282; 94770

== ENCOUNTER 2022-06-24 01:10 | Outpatient (CLI) | payer MEDICARE, OTHER | END 2022-06-24 01:11 | disposition critical access hospital (66) | LOC: EMS 01:10 | DX: R53.1 Weakness (principal); R11.0 Nausea | CPT/HCPCS: A0425; A0429 ==

== ENCOUNTER 2022-06-24 01:29 | Emergency (ER) | payer MEDICARE, OTHER ==
[2022-06-24 01:51] LABS: BASOPHILS % (AUTO) 0.2 %; EOSINOPHILS % (AUTO) 0.3 %; HCT - HEMATOCRIT 45.1 % (42.0-52.0); HGB - HEMOGLOBIN 14.6 g/dL (14.0-18.0); LYMPHOCYTES # (AUTO) 1.3 10^3/uL (1.5-3.5); LYMPHOCYTES % (AUTO) 11.2 %; MEAN CORPUSCULAR HGB CONC 32.4 g/dL (32.0-36.0); MEAN CORPUSCULAR VOLUME 111.1 fL (80.0-94.0); MEAN PLATELET VOLUME 8.5 fL (7.4-11.4); MONOCYTES # (AUTO) 0.6 10^3/uL (0.0-1.0); NEUTROPHILS # (AUTO) 9.4 10^3/uL (1.5-6.6); PLT - PLATELET COUNT 180 10^3/uL (130-450); RED BLOOD COUNT 4.06 10^6/uL (4.70-6.10); RED CELL DISTRIBUTION WIDTH 13.7 % (12.0-15.0); WHITE BLOOD COUNT 11.3 x10^3/uL (4.8-10.8)
[2022-06-24 01:53] LABS: VBG BASE EXCESS 4.6 mmol/L (-2 - +2); VBG HCO3 30.7 mmol/L (23-28); VBG PH 7.398 (7.31-7.41); VBG PO2 24.8 mmHg (25-47); VBG TOTAL CO2 32.3 mmol/L (24-29)
[2022-06-24 01:55] LABS: SLIDE REVIEW? Indicated
--- NOTE | 2022-06-24 02:00 | ED Physician Documentation ---
History of Present Illness - Stated complaint Stated Complaint: WEAKNESS - Chief complaint Chief Complaint: General - History obtained from History obtained from: Patient, Family ( and daughter) - Additonal information Additional information: 89yM with pmh multiple arrhythmias including recent ed stay for vtach, aicd in place, p/w SOA and weakness ongoing for the past month, progressively worsening, as well as chronic decreased appetite and 20 lb weight loss. states patient has been on new medication mexilitine which has been helping with his arrhythmias but he seems to be weaker since starting it. 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 denies cough, fever, n/v/d abd pain cp. Review of Systems Constitutional: denies: Fever Throat: denies: Sore throat Cardiac: denies: Chest pain / pressure Respiratory: reports: Dyspnea. denies: Cough GI: denies: Abdominal Pain, Nausea, Diarrhea PD PAST MEDICAL HISTORY - Past Medical History Cardiovascular: Congestive heart failure, Hypertension, Arrhythmia Respiratory: Sleep apnea Neuro: None Endocrine/Autoimmune: None GI: GERD : Other HEENT: Chronic vision loss Psych: None Musculoskeletal: Osteoarthritis, Fibromyalgia, Other Derm: None - Past Surgical History Past Surgical History: Yes General: Colonoscopy Ortho: Shoulder arthroplasty Cardiovascular: AICD, Other HEENT: Cataracts - Present Medications Home Medications: Ambulatory Orders Medication Instructions Recorded Confirmed Aspirin [Aspir 81] 81 mg PO DAILY 08/17/12 06/24/22 Omeprazole 20 mg PO BID 08/17/12 06/24/22 Tamsulosin [Flomax] 0.4 mg PO DAILY 08/17/12 06/24/22 Losartan [Cozaar] 25 mg PO DAILY 01/10/14 06/24/22 oxyCODONE ER [OxyCONTIN] 10 mg PO BID 01/10/14 06/24/22 Amiodarone [Pacerone] 200 mg PO DAILY 05/28/22 06/24/22 Atorvastatin [Lipitor] 20 mg PO QPM 05/28/22 06/24/22 Fluticasone [Flonase] 1 sprays JONATHAN DAILY 05/28/22 06/24/22 - Allergies Allergies/Adverse Reactions: Allergies Allergy/AdvReac Type Severity Reaction Status Date / Time No Known Drug Allergies Allergy Verified 05/28/22 06:48 - Social History Does the pt smoke?: No Smoking Status: Never smoker Does the pt drink ETOH?: Yes Does the pt have substance abuse?: No - Immunizations Immunizations are current?: Yes - POLST Patient has POLST: No PD ED PE NORMAL - Vitals Vital signs reviewed: Yes - General General: Alert and oriented X 3, No acute distress, Other (elderly appearing) - HEENT HEENT: Atraumatic, PERRL, EOMI, Moist mucous membranes, Pharynx benign - Neck Neck: Supple, no meningeal sign - Cardiac Cardiac: RRR, Other (aicd in place) - Respiratory Respiratory: No respiratory distress, Clear bilaterally - Abdomen Abdomen: Non tender, Non distended - Derm Derm: Normal color, Warm and dry - Extremities Extremities: No deformity, No edema - Neuro Neuro: No motor deficit, No sensory deficit - Psych Psych: Normal mood, Normal affect Results - Vitals Vitals: Vital Signs - 24 hr 06/24/22 06/24/22 06/24/22 01:38 01:59 02:38 Temperature 37.3 C Heart Rate 63 62 63 Respiratory 88 H 18 17 Rate Blood Pressure 150/86 H 150/86 H 154/87 H O2 Saturation 98 98 If not protocol 4 4 : Oxygen Flow, liters/minute Oxygen O2 Source Nasal cannula - EKG (time done) 0138 EKG releavant findings:: EKG personally interpreted by author of this note. Relevant findings are: Rate: Rate (enter#) (62) Rhythm: NSR Intervals: Prolonged MD (280), LBBB - Labs Labs: Laboratory Tests 06/24/22 06/24/22 06/24/22 01:47 01:47 01:47 WBC 11.3 H RBC 4.06 L Hgb 14.6 Hct 45.1 MCV 111.1 H MCH 36.0 H MCHC 32.4 RDW 13.7 Plt Count 180 MPV 8.5 Neut # (Auto) 9.4 H Lymph # (Auto) 1.3 L Stewart # (Auto) 0.6 Eos # (Auto) 0.0 Baso # (Auto) 0.0 Absolute Nucleated RBC 0.00 Nucleated RBC % 0.0 Manual Slide Review Indicated WBC Morphology NORMAL APPEARANCE Platelet Estimate NORMAL (130-450,000) Platelet Morphology NORMAL APPEARANCE RBC Morph Micro Appear 2+ MACROCYTOSIS VBG pH 7.398 VBG pCO2 51.0 VBG pO2 24.8 L VBG HCO3 30.7 H VBG Total CO2 32.3 H VBG O2 Saturation 45.0 L VBG Base Excess 4.6 H Sodium 134 L Potassium 4.6 Chloride 96 L Carbon Dioxide 29 Anion Gap 9.0 BUN 20 Creatinine 1.1 Estimated GFR (MDRD) 63 L Glucose 118 H Calcium 9.0 Total Bilirubin 0.6 AST 25 ALT 32 Alkaline Phosphatase 108 Total Protein 7.8 Albumin 3.7 Globulin 4.1 Albumin/Globulin Ratio 0.9 L Lipase 35 PD Medical Decision Making - ED course ED course: 89yM with extensive cardiac history p/w soa, weakness, decreased appetite and weight loss over the past few months. He had o2 sat in high 80s on arrival and was provided with 3L o2 by nasal cannula but stated it didn't make a difference. Labwork including cbc, abdominal panel was performed, showing mild leukocytosis 11.3, mild hyponatremia 134. EKG was NSR with LBBB. CXR without acute pathology per my independent interpretation and the interpretation of outside radiologist. I d/w daughter and that he may benefit from a goals of care discussion with palliative care given his advanced age and severe cardiovascular disease. They are agreeable to meet with Nicky Stafford and will try to move up the appointment with his PCP as well as set up a cardiology f/u. Return precautions given. Departure - Departure Disposition: 01 Home, Self Care Clinical Impression: Shortness of breath, Generalized weakness Condition: Stable Instructions: ED Dyspnea Shortness of Breath, Pulmonary Fibrosis Follow-Up: Nicky Stafford ARNP [Provider Admit Priv/Credential] - Comments: You were seen in the emergency department for shortness of breath and generalized weakness that been ongoing for the past month. Follow-up with your primary care provider, with palliative care, with cardiology and pulmonology. Return to the emergency department for new or worsening symptoms or other concerns.
[2022-06-24 02:03] LABS: ALBUMIN 3.7 g/dL (3.2-5.5); ALBUMIN/GLOBULIN RATIO 0.9 (1.0-2.2); BILIRUBIN,TOTAL 0.6 mg/dL (0.2-1.0); CREATININE 1.1 mg/dL (0.6-1.2); POTASSIUM 4.6 mmol/L (3.5-5.0); TOTAL PROTEIN 7.8 g/dL (6.7-8.2)
--- NOTE | 2022-06-24 02:04 | XRAY Report ---
PROCEDURE: Chest 1 View X-Ray INDICATIONS: Chest Pain TECHNIQUE: One view of the chest was acquired. COMPARISON: CXR 05/28/2022, 08/14/2015 FINDINGS: Surgical changes and devices: Left pacemaker with AICD lead and the right ventricle. Bilateral shoul daivd arthroplasties.. Lungs and pleura: No significant pleural effusion. No pneumothorax. Lungs appear clear. Mediastinum: Mediastinal contours appear unchanged. Aortic arch calcification. Heart size is normal . Bones and chest wall: No suspicious bony lesions. Prior right-sided rib fracture. Overlying soft ti ssues appear unremarkable. IMPRESSION: No acute cardiopulmonary abnormality identified. Reviewed by: Enzo Ramírez MD on 06/24/2022 2:03 AM PDT Approved by: Enzo Ramírez MD on 06/24/2022 2:03 AM PDT Station ID: [id number]
[2022-06-24 02:08] LABS: PLATELET ESTIMATE, MANUAL NORMAL (130-450,000) (NORMAL); PLATELET MORPHOLOGY NORMAL APPEARANCE (NORMAL); RBC MORPHOLOGY (MULTIPLE) 2+ MACROCYTOSIS (NORMAL); WBC MORPHOLOGY (MULTIPLE) NORMAL APPEARANCE (NORMAL)
[2022-06-24 03:04] VITALS: BP 162/70
== END 2022-06-24 03:35 | disposition home or self-care (01) ==
LOC: EDBD → EDUNIT# → ED 01:29
DX: R06.02 Shortness of breath (principal); R53.1 Weakness; I11.0 Hypertensive heart disease with heart failure; I50.9 Heart failure, unspecified; K21.9 Gastro-esophageal reflux disease without esophagitis; Z79.82 Long term (current) use of aspirin; Z79.899 Other long term (current) drug therapy
CPT/HCPCS: 36415; 80053; 82803; 83690; 85025; 93005; 99284

== ENCOUNTER 2022-08-29 17:06 | Outpatient (CLI) | payer MEDICARE, OTHER | END 2022-08-29 17:07 | disposition short-term general hospital (02) | LOC: EMS 17:06 | DX: I49.9 Cardiac arrhythmia, unspecified (principal); R53.1 Weakness; Z95.810 Presence of automatic (implantable) cardiac defibrillator | CPT/HCPCS: A0425; A0429 ==

== ENCOUNTER 2022-11-11 06:42 | Outpatient (CLI) | payer MEDICARE, OTHER | END 2022-11-11 23:59 | disposition short-term general hospital (02) | LOC: EMS 06:42 | DX: R06.02 Shortness of breath (principal); R53.1 Weakness | CPT/HCPCS: A0425; A0427; A0888 ==